=== PATIENT | female | born 1975 | race Caucasian/White ===

== ENCOUNTER → 2017-07-21 13:14 | Emergency (ER) | payer MEDICARE, BC ==
[~2017-07-21 13:14] MED LIST: HYDROmorphone INJ* 1 MG/ML CARPUJECT SYRINGE IV ONE; HYDROmorphone INJ* 1 MG/ML CARPUJECT SYRINGE IV SLOW PU ONE; Ketorolac INJ* 30 MG/ML 1 ML VIAL IV ONE; LORazepam INJ* 2 MG/ML 1 ML VIAL IV PUSH ONE; NS 0.9% 1000 ML* 1,000 ML IV ONE; Ondansetron INJ* 2 MG/ML VIAL IV ONE
[2017-07-21 14:55] LABS: Hematocrit 34 % (35-47); Hemoglobin 12.1 g/dl (12.0-16.0); Mean Corpuscular HGB Conc 35 g/dl (31-36); Mean Corpuscular Hemoglobin 34 pg (27-31); Mean Corpuscular Volume 97 fL (80-97); Mean Platelet Volume 6 um3 (7.4-10.4); Red Blood Count 3.55 10^6/ul (4.0-5.4); Red Cell Distribution Width 14 % (10.5-15); White Blood Count 1.9 10^3/ul (3.5-10.8)
[2017-07-21 14:56] LABS: Comments Flag Yes
[2017-07-21 14:57] LABS: Add Diff/Slide Review? Slide Review Added
--- NOTE | 2017-07-21 15:44 | RAD ---
Indication: Headache. Sinus pain. History of breast carcinoma. Comparison: April 28, 2017 bone scan. Technique: Noncontrast CT vertex of skull through foramen magnum. Report: The sulci, ventricles, and basal cisterns are normal for age. Hawkins matter white matter differentiation is preserved without evidence for edema. No intra or extra axial hemorrhage, mass, or fluid collection detected. Unremarkable visualized orbital contents. Unremarkable calvarium and skull base. Unremarkable scalp. The visualized paranasal sinuses and mastoid air spaces are clear. IMPRESSION: Negative unenhanced head CT.
--- NOTE | 2017-07-21 15:57 | RAD ---
Indication: Headache and sinus pain. History of breast carcinoma with bone metastasis. Comparison: CT brain of the same date and April 28, 2017 bone scan. Technique: Noncontrast CT paranasal sinuses with multiplanar reformation. Report: Artifact from dental amalgam. Clear paranasal sinuses and mastoid air spaces. Negative for paranasal sinus fluid levels. Clear infundibulum of the anterior ostiomeatal units. Clear nasal cavity. Patent choana and unremarkable nasopharyngeal mucosal space contours. No lytic or blastic osseous lesions evident. Unremarkable orbital contents. IMPRESSION: Negative unenhanced CT of the paranasal sinuses. No evidence for sinusitis or metastatic disease.
[2017-07-21 16:21] LABS: Urine Bilirubin Negative (Negative); Urine Glucose Negative (Negative); Urine Nitrite Negative (Negative)
--- NOTE | 2017-07-21 17:05 | ED ---
Kelley Alcantara Thomas, scribed for Imani Lawrence MD on 07/21/17 at 1435 . Headache - HPI Summary HPI Summary: The pt is a 41 y/o F presenting to the ED c/o a LE that began two days ago. The headache is located in her bilateral temples and radiates to her neck. The pain is rated 8/10. She describes this headache as the worst of her life. The pain is aggravated and alleviated by nothing. 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 Pt additionally c/o vomiting that coleman yesterday and continued today. She has vomited twice so far. She treated the vomiting with Zofran yesterday and today. Zofran did provide relief yesterday but no relief today. Pt denies fevers. She has Stage 4 breast cancer with metastases to her bones. She is on two chemotherapy treatments, one oral and one IV. Her oral treatment is three weeks on and one week off. She is currently in the third week, although she has not taken the medication for the last two days d/t her vomiting. Her IV treatment is once every four weeks. Her last IV treatment was three days ago. The patient also complains of nasal congestion and sinus tenderness that began three days ago, when she was diagnosed with a sinus infection and was started on Clindamycin. She says she may be slightly neutropenic. PSHx of a Port and a double mastectomy. SHx of occasional drinking and former smoking. She is accompanied by her . - History Of Current Complaint Chief Complaint: EDHeadache Stated Complaint: HEAD ACHE Time Seen by Provider: 07/21/17 13:34 Hx Obtained From: Patient, Family/Plastic Surgeon - is present Onset/Duration: Started days ago - onset two days ago, Still Present Initially Headache Was: "Worst Headache Ever" Currently Pain Is: Current Pain Scale(0-10)= - 8 Timing: Constant Location of Headache: Temporal - bilateral Radiates to: her neck Aggravating Factor: Nothing Allevating Factors: Nothing - OxyContin and Advil to no relief Associated Signs And Symptoms: Vomiting - yesterday and today, Other (Noted In Comments) - Nsal congestion, sinus tenderness; NEG: fever - Allergies/Home Medications Allergies/Adverse Reactions: Allergies Allergy/AdvReac Type Severity Reaction Status Date / Time Adhesive Tape Allergy Intermediate RAW SKIN Verified 04/28/17 07:29 Penicillins Allergy Mild Rash Verified 04/28/17 07:29 PMH/Surg Hx/FS Hx/Imm Hx Previously Healthy: No Endocrine/Hematology History: Reports: Hx Bone Marrow Disease Denies: Hx Diabetes Cardiovascular History: Denies: Hx Hypertension History: Denies: Hx Renal Disease Sensory History: Reports: Hx Contacts or Glasses Denies: Hx Hearing Aid Opthamlomology History: Reports: Hx Contacts or Glasses Psychiatric History: Reports: Hx Anxiety - ON MEDICATION FOR - Cancer History Cancer Type, Location and Year: Stage 4 Breast Cancer with metastases to her bones. Hx Chemotherapy: Yes - Surgical History Surgery Procedure, Year, and Place: ALL DONE IN [facility]. 10/2014- OVARIES REMOVED. 04/2012-BILATERAL MASTECTOMY,RECONSTRUCTIVE SURGERY, POWERPORT PORT PLACEMENT. MULTIPLE SURGERIES FOR BREAST RECONSTRUCTION. REMOVAL POWER PORT-. HERNIA REPAIR AT Hx Anesthesia Reactions: No Infectious Disease History: No Infectious Disease History: Denies: Traveled Outside the in Last 30 Days - Family History Known Family History: Positive: Other - Negative for breast cancer - Social History Lives: With Family Alcohol Use: Occasionally Substance Use Type: Reports: None Hx Tobacco Use: Yes Smoking Status (MU): Former Smoker Amount Used/How Often: 1/2 PPD X 10-15 YEARS Have You Smoked in the Last Year: No Review of Systems Negative: Fever Positive: Other - Nasal congestion, sinus tenderness Positive: Vomiting - yesterday and today, two episodes Positive: Headache - onset two days ago, bilateral temporal and radiates to neck All Other Systems Reviewed And Are Negative: Yes Physical Exam Triage Information Reviewed: Yes Vital Signs On Initial Exam: Initial Vitals Temp Pulse Resp BP Pulse Ox 98.1 F 95 18 160/106 99 07/21/17 13:16 07/21/17 13:16 07/21/17 13:16 07/21/17 13:16 07/21/17 13:16 Vital Signs Reviewed: Yes Appearance: Positive: Well-Appearing, Pain Distress - She is uncomfortable appearing but not toxic appearing Skin: Positive: Warm, Skin Color Reflects Adequate Perfusion, Dry Eyes: Positive: EOMI, OZZIE ENT: Positive: Pharynx normal, TMs normal Neck: Positive: Supple, Nontender Respiratory/Lung Sounds: Positive: Clear to Auscultation, Breath Sounds Present. Negative: Rales, Rhonchi, Wheezes Cardiovascular: Positive: RRR, Other - No gallop. Negative: Murmur, Rub Abdomen Description: Positive: Nontender, Soft, Other: - No guarding. Negative : Distended, Guarding Bowel Sounds: Positive: Present Musculoskeletal: Positive: Strength/ROM Intact. Negative: Edema Left, Edema Right Neurological: Positive: Sensory/Motor Intact, Alert, Oriented to Person Place, Time, CN Intact II-III Psychiatric: Positive: Affect/Mood Appropriate - [place] Coma Scale Coma Scale Total: 15 Diagnostics - Vital Signs Vital Signs Temp Pulse Resp BP Pulse Ox 07/21/17 13:16 98.1 F 95 18 160/106 99 - Laboratory Lab Results: Lab Results 07/21/17 07/21/17 07/21/17 Range/Units 14:41 14:41 15:35 WBC 1.9 L (3.5-10.8) 10^3/ul RBC 3.55 L (4.0-5.4) 10^6/ul Hgb 12.1 (12.0-16.0) g/dl Hct 34 L (35-47) % MCV 97 (80-97) fL MCH 34 H (27-31) pg MCHC 35 (31-36) g/dl RDW 14 (10.5-15) % Plt Count 96 L (150-450) 10^3/ul MPV 6 L (7.4-10.4) um3 Neut % (Auto) 59.7 (38-83) % Lymph % (Auto) 31.0 (25-47) % [place] % (Auto) 8.3 (1-9) % Eos % (Auto) 0.6 (0-6) % Baso % (Auto) 0.4 (0-2) % Absolute Neuts (auto) 1.1 L (1.5-7.7) 10^3/ul Absolute Lymphs (auto) 0.6 L (1.0-4.8) 10^3/ul Absolute Monos (auto) 0.2 (0-0.8) 10^3/ul Absolute Eos (auto) 0 (0-0.6) 10^3/ul Absolute Basos (auto) 0 (0-0.2) 10^3/ul Absolute Nucleated RBC 0.01 10^3/ul Nucleated RBC % 0.3 Lactic Acid 0.8 (0.5-2.0) mmol/L Urine Color Straw Urine Appearance Clear Urine pH 8.0 (5-9) Ur Specific [place] 1.010 (1.010-1.030) Urine Protein Negative (Negative) Urine Ketones Trace H (Negative) Urine Blood Negative (Negative) Urine Nitrate Negative (Negative) Urine Bilirubin Negative (Negative) Urine Urobilinogen Negative (Negative) Ur Leukocyte Esterase Negative (Negative) Urine Glucose Negative (Negative) Result Diagrams: 07/21/17 14:41 Lab Statement: Any lab studies that have been ordered have been reviewed, and results considered in the medical decision making process. - CT CT Brain CT Interpretation: No Acute Changes - Negative unenhanced head CT. ED physician has read this report and agrees. CT Interpretation Completed By: Radiologist CT Sinus CT Interpretation: No Acute Changes - Negative unenhanced CT of the paranasal sinuses. No evidence for sinusitis or metastatic disease. ED Physician has reviewed this report and agrees. CT Interpretation Completed By: Radiologist Re-Evaluation - Re-Evaluation First Eval Re-Evaluation Time: 15:30 Change: Unchanged Comment: She is requesting more pain medication Headache Course/Dx - Course Course Of Treatment: 41 yo female with metastatic breast ca, with mets to cervical spine with le for 2 days, refractive to her oxycodone, she had already been started on clinda by Dr. Vee for a presumed sinusitis after some sinus pressure on monday. CT brain, sinuses are neg here labs are unremarkable except for low wbc of 1.9 with an anc of 1.1. On exam pt does not have any rash or any signs of meningismus but she does notice musculoskeletal pain over para spinal muscles of her neck. Pt is also suprisingly well appearing. Case was discussed with Dr. Dior who felt as long as there was no meningismus pt was ok to go home. Of note pt does not have fever. Situation was discussed with pt and her mom and given this muscle pain in her neck (of note she is neurologically intact) plan is to try and ativan to see if it help with her nausea and relaxes her muscles. She knows she needs to return if her symptoms get worse or don't resolve - Diagnoses Provider Diagnoses: Headache - Physician Notifications Discussed Care Of Patient With: Zamzam Dior Time Discussed With Above Provider: 16:08 Instructed by Provider To: Other - I consulted regarding patient care. Discharge - Discharge Plan Condition: Stable Disposition: HOME Prescriptions: LORazepam TAB(*) [Ativan 1 MG TAB (*)] 1 mg PO Q8H PRN #9 tab MDD 3 PRN Reason: Spasms Patient Education Materials: Acute Headache (ED) Referrals: Reilly Vee MD [Primary Care Provider] - 3 Days The documentation as recorded by the Kelley sosa Thomas accurately reflects the service I personally performed and the decisions made by me, Imani Lawrence MD.
[2017-07-21 18:05] VITALS: BP 133/89
== END | disposition home or self-care (01) ==
LOC: ED 13:14
DX: R51 Headache (principal); R11.10 Vomiting, unspecified; R09.81 Nasal congestion; C79.51 Secondary malignant neoplasm of bone; C50.919 Malignant neoplasm of unspecified site of unspecified female breast; D75.9 Disease of blood and blood-forming organs, unspecified; Z90.13 Acquired absence of bilateral breasts and nipples; F41.9 Anxiety disorder, unspecified; Z88.0 Allergy status to penicillin; Z91.048 Other nonmedicinal substance allergy status; Z87.891 Personal history of nicotine dependence
CPT/HCPCS: 36415; 70450; 70486; 81003; 83605; 85025; 87040; 96361; 96374; 96375; 96376; 99283; J1170; J1642; J1885; J2060; J2405

== ENCOUNTER 2019-03-29 10:09 | Inpatient (IN) | payer MEDICARE, BC ==
[2019-03-29] MEDS ORDERED: Ondansetron INJ* 2 MG/ML VIAL IV PRN (12:10)
[2019-03-29] MEDS ORDERED: Acetaminophen TAB* 325 MG PO PRN (12:10)
[2019-03-29] MEDS ORDERED: HYDROmorphone INJ1* 1 MG/ML SYRINGE IV PRN (12:15)
[2019-03-29] MEDS ORDERED: Prochlorperazine TAB* 10 MG PO PRN (12:15)
[2019-03-29] MEDS ORDERED: Vancomycin per Pharmacy* NOTE FOLLOW UP PRN (12:36)
[2019-03-29] MEDS ORDERED: Vancomycin(*) 1,000 MG in NS 0.9% 250 ML* 250 ML IVPB ONE (12:45)
[2019-03-29] MEDS: Enoxaparin(*) 40 MG/0.4 ML SYR SUBCUT SCH (13:05)
[2019-03-29] MEDS: oxyCODONE TAB* 5 MG TAB PO PRN ×3 (13:27→21:52)
[2019-03-29 13:38] LABS: ABS Eosinophils 0.1 10^3/ul (0-0.6); ABS Lymphocytes 0.5 10^3/ul (1.0-4.8); ABS Monocytes 1.1 10^3/ul (0-0.8); ABS Neutrophils 3.9 10^3/ul (1.5-7.7); Eosinophil % 1.9 %; Hematocrit 27 % (35-47); Hemoglobin 8.9 g/dL (12.0-16.0); Lymphocyte % 8.7 %; Mean Corpuscular HGB Conc 33 g/dL (31-36); Mean Corpuscular Hemoglobin 33 pg (27-31); Mean Corpuscular Volume 101 fL (80-97); Mean Platelet Volume 7.8 fL (7.4-10.4); Nucleated Red Blood Cells % 0.1; Platelet Count 300 10^3/uL (150-450); Red Cell Distribution Width 18 % (10.5-15); White Blood Count 5.6 10^3/uL (3.5-10.8)
[2019-03-29 13:54] LABS: Albumin 3.5 g/dL (3.2-5.2); Albumin/Globulin Ratio 1.4 (1-3); BUN/Creatinine Ratio 11.4 (8-20); C Reactive Protein 74.09 mg/L (<8.01); EGFR African American 111.6 (>60); EGFR Non-African American 92.2 (>60); Globulin 2.5 g/dL (2-4); Potassium 3.8 mmol/L (3.5-5.0); Total Bilirubin 0.3 mg/dL (0.2-1.0)
[2019-03-29 14:46] LABS: Erythrocyte Sed Rate 85 mm/Hr (0-19)
[2019-03-29] MEDS: HYDROmorphone INJ1* 1 MG/ML SYRINGE IV PRN ×4 (15:04→22:01)
[2019-03-29] MEDS: Zolpidem TAB* 10 MG PO SCH (21:50)
[2019-03-29] MEDS: Calcium Carbonate CHEW TAB* 500 MG (TUMS) PO SCH (21:53)
[2019-03-29] MEDS: DULoxetine DR CAP* 30 MG CAP.DR PO SCH (21:54)
[2019-03-29] MEDS: clonazePAM TAB(*) 0.5 MG PO SCH (21:54)
[2019-03-29] MEDS: Vancomycin(*) 750 MG in NS 0.9% 250 ML* 250 ML IVPB SCH (21:59)
[2019-03-30] MEDS: HYDROmorphone INJ1* 1 MG/ML SYRINGE IV PRN ×7 (00:11→14:14)
[2019-03-30] MEDS: oxyCODONE TAB* 5 MG TAB PO PRN ×4 (02:08→20:39)
[2019-03-30] MEDS: Vancomycin(*) 750 MG in NS 0.9% 250 ML* 250 ML IVPB SCH ×3 (06:30→21:38)
[2019-03-30 06:41] LABS: ABS Eosinophils 0.1 10^3/ul (0-0.6); ABS Lymphocytes 0.5 10^3/ul (1.0-4.8); ABS Monocytes 0.9 10^3/ul (0-0.8); ABS Neutrophils 2.9 10^3/ul (1.5-7.7); Eosinophil % 2.6 %; Hematocrit 26 % (35-47); Hemoglobin 8.7 g/dL (12.0-16.0); Mean Corpuscular HGB Conc 33 g/dL (31-36); Mean Corpuscular Hemoglobin 33 pg (27-31); Mean Corpuscular Volume 100 fL (80-97); Mean Platelet Volume 7.6 fL (7.4-10.4); Nucleated Red Blood Cells % 0.1; Platelet Count 281 10^3/uL (150-450); Red Blood Count 2.61 10^6 /uL (3.70-4.87); Red Cell Distribution Width 18 % (10.5-15); White Blood Count 4.4 10^3/uL (3.5-10.8)
[2019-03-30 07:38] LABS: Calcium 8.8 mg/dL (8.6-10.3); Potassium 3.8 mmol/L (3.5-5.0)
[2019-03-30 07:40] LABS: C Reactive Protein 74.45 mg/L (<8.01); EGFR African American 117.4 (>60)
[2019-03-30] MEDS: clonazePAM TAB(*) 0.5 MG PO SCH ×2 (08:22→20:41)
[2019-03-30] MEDS: Calcium Carbonate CHEW TAB* 500 MG (TUMS) PO SCH ×2 (08:22→20:41)
[2019-03-30] MEDS: Enoxaparin(*) 40 MG/0.4 ML SYR SUBCUT SCH (13:16)
--- NOTE | 2019-03-30 15:27 | CONS ---
CONSULTATION NOTE: DATE OF CONSULT: 03/30/19 REQUESTING PROVIDER: Reilly Vee MD. REASON FOR CONSULTATION: Right lower extremity cellulitis. HISTORY OF PRESENT ILLNESS: Ms. Reyes is a very pleasant 43-year-old female with a history of metastatic breast cancer who has been on chemotherapy now for several years. She states that over the past 4 months, after chemotherapy, she has been getting intermittent right lower extremity erythema that typically resolves on its own without any intervention or antibiotics. However, approximately 2 weeks ago after chemotherapy she said that she began to have the right lower extremity erythema that seemed to improve afterwards and that became more purplish in color and then started to resolve. However, several days ago it started to return and become worse. She was seen by her oncologist Dr. Vee for the right lower extremity pain and swelling and CT scan of the pelvis as well as lower extremity was performed, which showed extensive inflammatory change and infiltration of the subcutaneous fat of the right lower extremity part of the gluteus and down to the right knee. However, there was no drainable collection or hematoma. She was admitted to the hospital for IV antibiotics and surgery was consulted given that there was concern that there was more swelling of her lower extremity. Of note, she also had a lower extremity duplex that did not show any DVTs. Today, the patient states that the pain still persists. She states that it is difficult to move her leg without using her hands to lift it up. She is able to ambulate slowly with a cane to the rest room. She states that the swelling and the pain feels fairly intense, but she is again able to move her extremity. She denies numbness or loss of sensation. PAST MEDICAL HISTORY: Breast cancer. PAST SURGICAL HISTORY: Bilateral salpingo-oophorectomy, double mastectomy, hernia repair at , TRAM flap breast reconstruction. MEDICATIONS: 1. Ambien. 2. Calcium. 3. CBD. 4. Cymbalta. 5. Denosumab subcutaneous q. 4 weeks. 6. Lasix p.r.n. 7. Gabapentin. 8. Klonopin. 9. K-Tab. 10. L-lysine. 11. Oxycodone p.r.n. 12. Pepcid p.r.n. 13. Protonix. 14. Temazepam p.r.n. 15. Zofran p.r.n. ALLERGIES: PENICILLIN. FAMILY HISTORY: A maternal cousin with breast cancer. Mother with bladder cancer. SOCIAL HISTORY: The patient is . She is a former smoker. REVIEW OF SYSTEMS: Negative except for right lower extremity pain and swelling. PHYSICAL EXAM: Vital Signs: Temperature 98.3, pulse is 102, respiratory rate is 16, O2 sat 97% on room air, blood pressure is 112/66. General: This is a young woman lying comfortably bed in no apparent distress. HEENT: Normo- cephalic and atraumatic. Cardiovascular: Regular rate and rhythm. Respiratory : Clear to auscultation bilaterally. Lower Extremities: Positive DP and PT pulses bilaterally. At her ankle, there is 5/5 strength with extension and dorsiflexion of her ankle bilaterally. She has normal active movement of her left lower extremity. She is able to lift up her right lower extremity with some effort on her own. No decreased sensation of the right lower extremity. Examination of her right lower extremity reveals very darkened erythema extending across her anterior leg onto her posterior gluteus and some swelling around her medial knee. The erythema is slightly tender to palpation. There are some swelling, but some compartments of her upper thigh are soft. DIAGNOSTIC STUDIES/LAB DATA: Venous Doppler study from 03/29/19 shows no right lower extremity deep vein thrombosis and her CT pelvis and lower extremity was reviewed and showed diffuse inflammatory changes of the right lower extremity and right gluteus. No evidence of abscess or hematoma. ASSESSMENT AND PLAN: Ms. Reyes is a 43-year-old female with a history of metastatic breast cancer, currently on chemotherapy, who presented with 2 weeks of right lower extremity cellulitis that has been worsening over the past several days. She was admitted to the hospital for IV antibiotics. CT scan showed extensive subcutaneous inflammatory changes of her right lower extremity , down to her knee, and up into her gluteus consistent with her physical exam findings. She also had a duplex that did not reveal DVT. Currently her cellulitis appears somewhat mild on exam. She does not have any fevers or elevated white blood cell count. I would recommend continuing to monitor the lower extremity. The area of erythema that appears most prominent was outlined with a marking pen. I have also recommended and spoken to her nurse by elevating her right lower extremity while she is lying in bed. 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 At that time, there is no evidence that this is potentially necrotizing soft tissue infection or that the patient has compartment syndrome given that she has no neurologic or vascular deficits and has soft compartments. Surgery will continue to follow. I spent approximately 30 minutes in the care and coordination of this patient, over half of which was face to face. [id number]/[facility] #: [id number] REYES
[2019-03-30] MEDS: HYDROmorphone INJ1* 1 MG/ML SYRINGE IV SLOW PU PRN ×4 (16:42→23:29)
[2019-03-30] MEDS ORDERED: Pantoprazole TAB * 40 MG TAB PO SCH (17:00)
[2019-03-30] MEDS: DULoxetine DR CAP* 30 MG CAP.DR PO SCH (20:40)
[2019-03-30] MEDS: Senna TAB PO SCH (20:40)
[2019-03-30] MEDS: Zolpidem TAB* 10 MG PO SCH (20:41)
[2019-03-30] MEDS: Pantoprazole TAB * 40 MG TAB PO SCH (20:41)
[2019-03-31] MEDS: HYDROmorphone INJ1* 1 MG/ML SYRINGE IV PRN (04:00)
[2019-03-31] MEDS: oxyCODONE TAB* 5 MG TAB PO PRN ×3 (04:28→21:08)
[2019-03-31] MEDS ORDERED: Vancomycin Trough Check NOTE FOLLOW UP ONE (05:30)
[2019-03-31 06:00] LABS: ABS Eosinophils 0.1 10^3/ul (0-0.6); ABS Lymphocytes 0.4 10^3/ul (1.0-4.8); ABS Monocytes 0.7 10^3/ul (0-0.8); ABS Neutrophils 2.2 10^3/ul (1.5-7.7); Eosinophil % 2.8 %; Hematocrit 23 % (35-47); Hemoglobin 7.7 g/dL (12.0-16.0); Lymphocyte % 10.6 %; Mean Corpuscular HGB Conc 34 g/dL (31-36); Mean Corpuscular Hemoglobin 34 pg (27-31); Mean Corpuscular Volume 101 fL (80-97); Mean Platelet Volume 7.4 fL (7.4-10.4); Nucleated Red Blood Cells % 0.1; Platelet Count 283 10^3/uL (150-450); Red Blood Count 2.28 10^6 /uL (3.70-4.87); Red Cell Distribution Width 18 % (10.5-15); White Blood Count 3.4 10^3/uL (3.5-10.8)
[2019-03-31 06:09] LABS: C Reactive Protein 60.92 mg/L (<8.01)
[2019-03-31] MEDS: HYDROmorphone INJ1* 1 MG/ML SYRINGE IV SLOW PU PRN ×6 (06:19→21:59)
[2019-03-31] MEDS: Vancomycin(*) 750 MG in NS 0.9% 250 ML* 250 ML IVPB SCH ×3 (06:42→22:06)
[2019-03-31] MEDS: Calcium Carbonate CHEW TAB* 500 MG (TUMS) PO SCH ×2 (08:19→21:07)
[2019-03-31] MEDS: clonazePAM TAB(*) 0.5 MG PO SCH ×2 (08:19→21:08)
[2019-03-31] MEDS: Docusate CAP* 100 MG PO PRN ×2 (10:34→21:07)
--- NOTE | 2019-03-31 11:36 | PN ---
Progress Note - Progress Note Date of Service: 03/31/19 Note: Surgery Progress Note S: Patient says she ambulated twice around the unit yesterday but the second time was very painful. Her RLE still feels swollen and painful. She also complains of left flank swelling. She says pain is about the same level today. She remains afebrile. O: Vital Signs - 24 hr 03/30/19 03/30/19 03/30/19 11:34 12:19 13:57 Temperature 98.3 F Pulse Rate 102 Respiratory 16 18 18 Rate Blood Pressure 112/66 (mmHg) O2 Sat by Pulse 97 Oximetry 03/30/19 03/30/19 03/30/19 14:14 15:25 16:04 Temperature 98.8 F Pulse Rate 109 Respiratory 20 18 20 Rate Blood Pressure 134/76 (mmHg) O2 Sat by Pulse 99 Oximetry 03/30/19 03/30/19 03/30/19 16:07 16:42 18:10 Temperature Pulse Rate Respiratory 20 18 20 Rate Blood Pressure (mmHg) O2 Sat by Pulse Oximetry 03/30/19 03/30/19 03/30/19 18:52 20:00 20:12 Temperature Pulse Rate Respiratory 18 18 18 Rate Blood Pressure (mmHg) O2 Sat by Pulse Oximetry 03/30/19 03/30/19 03/30/19 20:13 20:39 20:41 Temperature 98.5 F Pulse Rate 106 Respiratory 16 18 18 Rate Blood Pressure 131/83 (mmHg) O2 Sat by Pulse 96 Oximetry 03/30/19 03/30/19 03/30/19 21:26 23:15 23:29 Temperature 97.6 F Pulse Rate 97 Respiratory 17 16 18 Rate Blood Pressure 107/69 (mmHg) O2 Sat by Pulse 97 Oximetry 03/30/19 03/31/19 03/31/19 23:37 00:34 03:55 Temperature 98.8 F Pulse Rate 93 Respiratory 16 16 18 Rate Blood Pressure 91/61 (mmHg) O2 Sat by Pulse 96 Oximetry 03/31/19 03/31/19 03/31/19 04:00 04:20 04:28 Temperature Pulse Rate Respiratory 18 18 Rate Blood Pressure 122/72 (mmHg) O2 Sat by Pulse Oximetry 03/31/19 03/31/19 03/31/19 05:00 06:19 07:10 Temperature Pulse Rate Respiratory 16 18 15 Rate Blood Pressure (mmHg) O2 Sat by Pulse Oximetry 03/31/19 03/31/19 03/31/19 07:42 08:19 08:20 Temperature 97.8 F Pulse Rate 95 Respiratory 17 16 16 Rate Blood Pressure 98/60 (mmHg) O2 Sat by Pulse 93 Oximetry 03/31/19 10:32 Temperature Pulse Rate Respiratory 16 Rate Blood Pressure (mmHg) O2 Sat by Pulse Oximetry Laboratory Results - last 24 hr 03/31/19 03/31/19 05:30 05:30 WBC 3.4 L RBC 2.28 L Hgb 7.7 L Hct 23 L MCV 101 H MCH 34 H MCHC 34 RDW 18 H Plt Count 283 MPV 7.4 Neut % (Auto) 64.4 Lymph % (Auto) 10.6 [place] % (Auto) 21.6 Eos % (Auto) 2.8 Baso % (Auto) 0.6 Absolute Neuts (auto) 2.2 Absolute Lymphs (auto) 0.4 L Absolute Monos (auto) 0.7 Absolute Eos (auto) 0.1 Absolute Basos (auto) 0.0 Absolute Nucleated RBC 0.0 Nucleated RBC % 0.1 C-Reactive Protein 60.92 H Vancomycin Trough 17.0 Intake & Output 03/30/19 03/31/19 03/31/19 22:59 06:59 14:59 Intake Total 5149 680 8688 Output Total 1250 1999 Balance -250 -1275 1020 Intake: IVPB 275 300 ABX - VANCOMYCIN 275 300 Oral 1000 450 720 Output: Urine 1250 1999 Physical exam: Gen: young woman lying comfortably in bed, anxious about her pain RLE: +DP and PT pulses, +active flexion and extension at ankle, limited active range of motion at knee and hip due to pain; erythema not beyond outlined area, no bullae, warm to touch, +edema and swelling along anterior and medial thigh, tender to deep palpation along the knee and thigh A/P: 43 F with metastatic breast cancer and 2 weeks of RLE cellulitis that has worsened since last Mon, prompting admission for IV abx. - Patient remains afebrile, HR in 90s, with normal WBC, no leukocytosis, normal Na yesterday and downtrending CRP and CKs. Her physical exam is fairly unchanged today. I discussed with the patient and her mother that at this time she has evidence of cellulitis and that a necrotizing soft tissue infection is low on the differential, given her clinical picture. - I discussed patient with Dr. Vee. If concern that swelling and pain is due to compartment syndrome would consult orthopedics to measure compartment pressures. Also recommend ID consult regarding patient's recurrent cellulitis - Continue leg elevation, abx
[2019-03-31] MEDS: Ketorolac INJ* 30 MG/ML 1 ML VIAL IV PUSH PRN ×2 (13:13→19:22)
[2019-03-31] MEDS: Cefepime 2 GM in Dextrose(*) 2 GM/50 ML BAG IV SCH (13:13)
[2019-03-31] MEDS: Enoxaparin(*) 40 MG/0.4 ML SYR SUBCUT SCH (13:13)
[2019-03-31] MEDS: Zolpidem TAB* 10 MG PO SCH (21:02)
[2019-03-31] MEDS: Senna TAB PO SCH (21:07)
[2019-03-31] MEDS: Pantoprazole TAB * 40 MG TAB PO SCH (21:07)
[2019-03-31] MEDS: DULoxetine DR CAP* 30 MG CAP.DR PO SCH (21:08)
[2019-04-01] MEDS: Cefepime 2 GM in Dextrose(*) 2 GM/50 ML BAG IV SCH ×2 (00:13→11:33)
[2019-04-01] MEDS: HYDROmorphone INJ1* 1 MG/ML SYRINGE IV SLOW PU PRN ×8 (03:41→21:59)
[2019-04-01] MEDS: oxyCODONE TAB* 5 MG TAB PO PRN ×3 (03:46→19:09)
[2019-04-01 06:11] LABS: ABS Eosinophils 0.1 10^3/ul (0-0.6); ABS Lymphocytes 0.3 10^3/ul (1.0-4.8); ABS Monocytes 0.6 10^3/ul (0-0.8); ABS Neutrophils 2.6 10^3/ul (1.5-7.7); Eosinophil % 2.7 %; Hematocrit 24 % (35-47); Hemoglobin 7.8 g/dL (12.0-16.0); Mean Corpuscular HGB Conc 33 g/dL (31-36); Mean Corpuscular Hemoglobin 33 pg (27-31); Mean Corpuscular Volume 99 fL (80-97); Mean Platelet Volume 6.6 fL (7.4-10.4); Nucleated Red Blood Cells % 0.3; Platelet Count 276 10^3/uL (150-450); Red Blood Count 2.39 10^6 /uL (3.70-4.87); Red Cell Distribution Width 17 % (10.5-15); White Blood Count 3.6 10^3/uL (3.5-10.8)
[2019-04-01] MEDS: Vancomycin(*) 750 MG in NS 0.9% 250 ML* 250 ML IVPB SCH ×3 (06:13→22:03)
--- NOTE | 2019-04-01 08:40 | PN ---
Progress Note - Progress Note Date of Service: 04/01/19 Note: Surgery Progress Note S: Patient feels a little better this morning. She feels that her right knee is less swollen and she has a little less pain overall. She complains of swelling in her bilateral flank areas. She ambulated 3 times yesterday. She remains afebrile. No numbness or tingling O: Vital Signs - 24 hr 03/31/19 03/31/19 03/31/19 10:32 11:32 12:25 Temperature 97.6 F Pulse Rate 95 Respiratory 16 16 18 Rate Blood Pressure 99/64 (mmHg) O2 Sat by Pulse 94 Oximetry 03/31/19 03/31/19 03/31/19 14:36 16:00 16:25 Temperature 97.6 F Pulse Rate 104 Respiratory 16 20 16 Rate Blood Pressure 110/67 (mmHg) O2 Sat by Pulse 91 Oximetry 03/31/19 03/31/19 03/31/19 17:01 18:34 19:29 Temperature Pulse Rate Respiratory 14 14 18 Rate Blood Pressure (mmHg) O2 Sat by Pulse Oximetry 03/31/19 03/31/19 03/31/19 19:42 19:55 20:29 Temperature 98.5 F Pulse Rate 95 Respiratory 16 18 20 Rate Blood Pressure 97/60 (mmHg) O2 Sat by Pulse 94 Oximetry 03/31/19 03/31/19 03/31/19 21:08 21:59 23:00 Temperature Pulse Rate Respiratory 18 20 16 Rate Blood Pressure (mmHg) O2 Sat by Pulse Oximetry 04/01/19 04/01/19 04/01/19 00:12 01:55 03:20 Temperature 98.8 F Pulse Rate 98 Respiratory 16 14 16 Rate Blood Pressure 116/70 (mmHg) O2 Sat by Pulse 97 Oximetry 04/01/19 04/01/19 04/01/19 03:41 03:46 06:07 Temperature Pulse Rate Respiratory 20 18 20 Rate Blood Pressure (mmHg) O2 Sat by Pulse Oximetry 04/01/19 04/01/19 04/01/19 06:14 07:43 08:17 Temperature 99.1 F Pulse Rate 104 Respiratory 18 18 18 Rate Blood Pressure 117/66 (mmHg) O2 Sat by Pulse 91 Oximetry Intake & Output 03/31/19 04/01/19 04/01/19 22:59 06:59 14:59 Intake Total 426 650 Output Total 600 1200 Balance -174 -550 Intake: IV Fluids 30 NS (0.9%) 30 IVPB 286 ABX - VANCOMYCIN 286 Oral 110 650 Output: Urine 600 1200 Laboratory Results - last 24 hr 04/01/19 06:00 WBC 3.6 RBC 2.39 L Hgb 7.8 L Hct 24 L MCV 99 H MCH 33 H MCHC 33 RDW 17 H Plt Count 276 MPV 6.6 L Neut % (Auto) 72.2 Lymph % (Auto) 7.0 [place] % (Auto) 17.3 Eos % (Auto) 2.7 Baso % (Auto) 0.8 Absolute Neuts (auto) 2.6 Absolute Lymphs (auto) 0.3 L Absolute Monos (auto) 0.6 Absolute Eos (auto) 0.1 Absolute Basos (auto) 0.0 Absolute Nucleated RBC 0.0 Nucleated RBC % 0.3 Physical exam: RLE- erythema within previously marked lines along anterior and medial upper thigh, warm, +swelling, +DP/PT pulses, full active ROM of ankle. Limited ROM of hip/knee from pain. no decreased sensation. Decreased erythema and tenderness around posterior gluteus. No obvious flank swelling on right or left. Overall thigh and lower extremity compartments soft A/P: 43 F with metastatic breast cancer with RLE cellulitis - Pain and erythema have improved today since Monday, patient able to ambulate more and remains afebrile with no leukocytosis, no left shift. No clinical evidence at this moment of necrotizing soft tissue infection - Recommend IV abx, ID consult - Recommend ortho consult if concern about compartment syndrome develops - Surgery will sign off, please feel free to call back as needed.
[2019-04-01] MEDS: Calcium Carbonate CHEW TAB* 500 MG (TUMS) PO SCH ×2 (09:00→21:42)
[2019-04-01] MEDS: clonazePAM TAB(*) 0.5 MG PO SCH ×2 (09:00→21:43)
[2019-04-01] MEDS: Dexamethasone IV* 4 MG/ML 1 ML (4 MG) IV SLOW PU SCH ×2 (11:33→21:43)
--- NOTE | 2019-04-01 12:58 | CONS ---
CONSULTATION REPORT: DATE OF CONSULT: 04/01/19 REQUESTING PHYSICIAN: Dr. Vee. CONSULTING SERVICE: Infectious Disease. REASON FOR CONSULT: Right leg erythema. IMPRESSION: 1. Stage IV breast cancer with recent Gemzar chemotherapy and right thigh erythema, edema, tenderness, slight elevation in CK and CRP, improved over the weekend on antibiotics. Differential diagnosis includes infective cellulitis and myositis. There is no log roll or effusion, neither suggestive of septic joint. There is no crepitus or subcu air on the CT, so anaerobic gas gangrene seemed unlikely. Question of a Gemzar side effect, which has apparently been reported in the literature, was raised by Dr. Vee. 2. PENICILLIN allergy caused rash. RECOMMENDATIONS: We will continue broad-spectrum antibiotics, with vancomycin goal trough 10 to [address] Vee is going to start corticosteroids for the possibility of an immune-mediated process driven by chemotherapy. I will order an MRI to show there is no hip joint effusion as well as to look for muscle involvement. HISTORY OF PRESENT ILLNESS: This is a 43-year-old woman with metastatic breast cancer, admitted with right leg pain. Since she has been on Gemzar chemotherapy , she has noticed some right thigh redness and pain starting after each infusion and it resolves within 2 or 3 days. It seemed to be getting a little worse each cycle and then with the addition of corticosteroids at the time of her infusion, it seemed to delay the onset of symptoms. After last week's infusion, she had onset of severe right inner thigh redness, pain, swelling that spread up to her right hip. It did not radiate to the groin. A CT scan showed infiltration of subcu fat at the proximal right thigh along the right hip and lateral gluteal musculature with inflammation. No fluid collection. No hematoma. Sclerotic bone lesion in the spine, pelvis, and left femur. Compression of the left common iliac vein. She has been on broad spectrum antibiotics here. Her symptoms have eased off a little bit. As far as the pain , it seems to be receding back into the thigh. She did have severe pain with weightbearing, but now is able to be up and around bathroom with less pain, though she is on more narcotic pain medicine. She has not had fevers, chills, or sweats. Her appetite is at its baseline. Blood cultures here were negative. She has had no leukocytosis. Her CRP initially was 74 and 60 today. CK was 344 on admission, 265 on 03/30/19. PAST MEDICAL HISTORY: 1. Stage IV breast cancer, treated with double mastectomy, chemotherapy, now with bone metastasis. 2. Status post TRAM flap breast reconstruction. 3. Status post bilateral salpingo-oophorectomy. 4. Depression. 5. Anxiety. 6. Pain. MEDICATIONS: 1. Tylenol. 2. Calcium carbonate. 3. Cefepime 2 g IV 12 hours. 4. Clonazepam. 5. Docusate. 6. Duloxetine. 7. Enoxaparin/heparin flushed through the port. 8. Dilaudid injection as needed. 9. Ketorolac. 10. Oxycodone as needed. 11. Pantoprazole. 12. Reglan as needed. 13. Vancomycin 750 mg every 8 hours. 14. Ambien. FAMILY HISTORY: No recurrent infections. SOCIAL HISTORY: She lives in [facility]. She has no travel or sick contacts. REVIEW OF SYSTEMS: All negative except as noted above to 14-point review. PHYSICAL EXAM: Vital Signs: Temperature 37, heart rate 100, respiratory rate 18, blood pressure 109/69, oxygen saturation 94% on room air. In general, she is awake, not in distress. Neurologic: She is oriented x3. Follows all commands. Moves all extremities. She does have weakness with right hip flexion. HEENT: There is no conjunctival hemorrhage. Oropharynx without lesions. Neck: Neck is supple without mass. Heart: Regular rate and rhythm without murmurs, rubs, or gallops. Lungs: Clear to auscultation bilaterally. Abdomen: Soft, nontender, nondistended. There are bowel sounds present. Skin : There is no rash or splinter hemorrhage. Musculoskeletal: Right thigh: There is diffuse edema in the medial thigh that extends up over the pelvis and into the right buttock. There is no crepitus or fluctuance. There is tenderness in that distribution. There is no pain with log roll. There is no pain with passive range of motion of the right hip. She cannot flex the right hip. DIAGNOSTIC STUDIES/LAB DATA: White blood cell count 3.6, hemoglobin 10.8, platelets 276. Creatinine is 0.6. Please see impressions and recommendations outlined above, which I have discussed with Dr. Vee. Thank you for asking me to see Ms. Reyes in consultation. [id number]/[facility] #: [id number] REYES
[2019-04-01] MEDS: Enoxaparin(*) 40 MG/0.4 ML SYR SUBCUT SCH (13:47)
[2019-04-01] MEDS: Senna TAB PO SCH (21:36)
[2019-04-01] MEDS: DULoxetine DR CAP* 30 MG CAP.DR PO SCH (21:42)
[2019-04-01] MEDS: Pantoprazole TAB * 40 MG TAB PO SCH (21:43)
[2019-04-01] MEDS: Zolpidem TAB* 10 MG PO SCH (21:43)
[2019-04-01] MEDS: Docusate CAP* 100 MG PO PRN (21:43)
[2019-04-02] MEDS: Cefepime 2 GM in Dextrose(*) 2 GM/50 ML BAG IV SCH ×2 (00:54→12:28)
[2019-04-02] MEDS: oxyCODONE TAB* 5 MG TAB PO PRN ×5 (00:54→21:16)
[2019-04-02] MEDS: HYDROmorphone INJ1* 1 MG/ML SYRINGE IV SLOW PU PRN ×8 (00:55→18:42)
[2019-04-02] MEDS ORDERED: Vancomycin Trough Check NOTE FOLLOW UP ONE (05:30)
[2019-04-02 07:02] LABS: EGFR African American 141.4 (>60); EGFR Non-African American 116.9 (>60)
[2019-04-02 07:12] LABS: Vancomycin Trough 12.7 mcg/mL
[2019-04-02] MEDS: Dexamethasone IV* 4 MG/ML 1 ML (4 MG) IV SLOW PU SCH ×2 (08:10→21:19)
[2019-04-02] MEDS: Vancomycin(*) 750 MG in NS 0.9% 250 ML* 250 ML IVPB SCH ×2 (08:11→14:15)
[2019-04-02] MEDS: clonazePAM TAB(*) 0.5 MG PO SCH ×2 (08:16→22:36)
[2019-04-02] MEDS: Calcium Carbonate CHEW TAB* 500 MG (TUMS) PO SCH ×2 (08:16→21:18)
[2019-04-02] MEDS: Enoxaparin(*) 40 MG/0.4 ML SYR SUBCUT SCH (12:29)
[2019-04-02] MEDS: DULoxetine DR CAP* 30 MG CAP.DR PO SCH (21:17)
[2019-04-02] MEDS: Pantoprazole TAB * 40 MG TAB PO SCH (21:18)
[2019-04-02] MEDS: HYDROmorphone INJ1* 1 MG/ML SYRINGE IV PRN (21:25)
[2019-04-02] MEDS: Docusate CAP* 100 MG PO PRN (21:30)
[2019-04-02] MEDS: Senna TAB PO SCH (21:33)
[2019-04-02] MEDS: Zolpidem TAB* 10 MG PO SCH (22:37)
[2019-04-03] MEDS: Cefepime 2 GM in Dextrose(*) 2 GM/50 ML BAG IV SCH (00:07)
[2019-04-03] MEDS: HYDROmorphone INJ1* 1 MG/ML SYRINGE IV PRN ×4 (01:51→09:16)
[2019-04-03] MEDS: oxyCODONE TAB* 5 MG TAB PO PRN ×2 (05:20→09:34)
[2019-04-03 06:04] LABS: EGFR African American 128.4 (>60); EGFR Non-African American 106.1 (>60)
[2019-04-03 08:09] VITALS: BP 136/80
[2019-04-03] MEDS: Calcium Carbonate CHEW TAB* 500 MG (TUMS) PO SCH (09:07)
[2019-04-03] MEDS: clonazePAM TAB(*) 0.5 MG PO SCH (09:08)
[2019-04-03] MEDS: Dexamethasone IV* 4 MG/ML 1 ML (4 MG) IV SLOW PU SCH (09:09)
[2019-04-03] MEDS: Docusate CAP* 100 MG PO PRN (09:42)
[2019-04-03] MEDS: HYDROmorphone INJ1* 1 MG/ML SYRINGE IV SLOW PU PRN (11:18)
--- NOTE | 2019-04-04 10:27 | DS ---
DISCHARGE SUMMARY: DATE OF ADMISSION: 03/29/19 DATE OF DISCHARGE: 04/03/19 PRIMARY ONCOLOGIST/ATTENDING PHYSICIAN: Dr. Reilly Vee.* (DICTATED BY RAMAN MOTT) CONSULTING INFECTIOUS DISEASE SPECIALIST: Dr. Royce Christiansen. DISCHARGING PROVIDER: RAMAN Mott. PRIMARY DISCHARGE DIAGNOSES: 1. 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 2. Metastatic breast cancer. 3. 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 DISCHARGE MEDICATIONS: 1. Calcium carbonate 500 mg p.o. twice daily. 2. Clonazepam 0.5 mg p.o. twice daily. 3. Cymbalta 90 mg p.o. daily. 3. Lysine 500 mg p.o. daily. 4. Multivitamin 1 tablet p.o. daily. 5. Zofran 4 mg p.o. q.4 hours as needed for nausea and vomiting. 6. Oxycodone 3 to 4 mg p.o. q.3 hours as needed for pain. 7. Compazine 10 mg p.o. q.6 hours as needed for nausea and vomiting. 8. Ambien 10 mg p.o. at bedtime as needed. 9. Dexamethasone 4 mg p.o. twice daily. 10. MS Contin 120 mg p.o. at bedtime. HOSPITAL IMAGIN. CTA of the lower extremity shows no arterial occlusion. Soft tissues show significant inflammatory change consistent with possible cellulitis. No drainable fluid collection or obvious hematoma. Widespread sclerotic bony lesions involving the spine, pelvis, and left femur. 2. Venous Doppler study shows no DVT. 3. Lower extremity MRI findings consistent with cellulitis, myositis, and fascitis in both thighs, right greater than left, as well as small effusion within the right hip. HOSPITAL COURSE: This is a 43-year-old female with metastatic breast cancer, who is under the care of Dr. Vee and was recently treated with gemcitabine, who has been complaining of intermittent, but generally short-lived pain in her proximal right thigh, which is associated with focal edema. This started with switching to new regimen of gemcitabine. Initially thought to be perhaps some sort of focal rash associated with the gemcitabine and treated with increased steroids at the time of infusion, which seemed to help initially, but then she developed more significant and persistent pain. The patient's edema became quite pronounced and spread into the right lower back and flank region as well as into the buttock. She was evaluated by Dr. Reilly Vee in the oncology office with this complaint and had a CT scan completed earlier that morning for evaluation, which showed soft tissue inflammation consistent with a possible cellulitis. The patient was admitted to the hospital for empiric treatment for possible cellulitis. She was tender to palpation on exam with some mild erythema and edema in the right proximal thigh and flank. She had no leukocytosis or fever. Range of motion in the right hip was quite limited secondary to pain. The patient was empirically treated with vancomycin and cefepime was added 2 days into her hospitalization with little to no improvement in symptoms. She was subsequently seen by both surgery and infectious disease specialties, who suggested the possibility of myositis and suggested lower extremity MRI, which did indeed show inflammatory changes consistent with the myositis. Her CPK at the time of admission is 344. Following recognition of possible myositis, she was started on dexamethasone 4 mg p.o. twice daily and CPK improved to 85 at the time of discharge. There do seem to be a few case reports of gemcitabine inducing myositis and this seemed to be the most likely explanation for her symptoms. DISPOSITION AND FOLLOWUP PLAN: The patient is being discharged to home in stable condition. She will continue on dexamethasone at 4 mg p.o. twice daily at this time and we will taper once symptoms have improved further. Gemcitabine will be on hold until her symptoms resolve and we will readdress her treatment plan at that time. The patient will be seen in the oncology office for appropriate followup within the next week and the patient is encouraged to call with questions or recurrent symptoms that develop prior to that. RAMAN MOTT [id number]/[facility] #: [id number] [facility] CENTERKimberly
[2019-04-05] MEDS ORDERED: Vancomycin Trough Check NOTE FOLLOW UP ONE (05:30)
== END 2019-04-03 11:44 | disposition home or self-care (01) | DRG 603 ==
LOC: CHOA 10:09 → SSU 11:44
PROVIDERS: ADMIT Internal Medicine Hematology & Oncology; ATTEND Internal Medicine Hematology & Oncology
DX: L03.115 Cellulitis of right lower limb (principal); C79.51 Secondary malignant neoplasm of bone; M60.861 Other myositis, right lower leg; L03.116 Cellulitis of left lower limb; M60.862 Other myositis, left lower leg; T45.1X5A Adverse effect of antineoplastic and immunosuppressive drugs, initial encounter; C50.911 Malignant neoplasm of unspecified site of right female breast; G89.3 Neoplasm related pain (acute) (chronic); F41.9 Anxiety disorder, unspecified; F32.9 Major depressive disorder, single episode, unspecified; Y92.9 Unspecified place or not applicable; Z17.1 Estrogen receptor negative status [ER-]; Z88.0 Allergy status to penicillin; Z79.899 Other long term (current) drug therapy; Z92.3 Personal history of irradiation; Z90.13 Acquired absence of bilateral breasts and nipples; Z87.891 Personal history of nicotine dependence; Z80.3 Family history of malignant neoplasm of breast; Z80.52 Family history of malignant neoplasm of bladder
CPT/HCPCS: 36415; 80048; 80053; 80202; 82085; 82550; 82565; 84145; 84520; 85025; 85652; 86140; 87040; 96523; 99213; 99222; 99239; A9270-GY; G0463; J0692; J1100; J1170; J1642; J1650; J1885; J3370

== ENCOUNTER 2019-04-13 10:14 | Emergency (ER) | payer MEDICARE, BC ==
--- NOTE | 2019-04-13 10:38 | ED ---
Lower Extremity - HPI Summary HPI Summary: 43 year old F referred to [facility] by her oncologist accompanied by mother with a chief complaint of sudden onset bilateral knee pain described as "knives in my knees" since last night. The patient rates the pain 9/10 in severity. Symptoms aggravated by nothing. Symptoms alleviated by nothing. Patient reports right thigh pain. Patient denies bilateral knee swelling. She denies constipation. Patient has Stage 4 breast cancer with metastasis to bone. Patient was admitted last week for inflammation from an allergic reaction to chemotherapy. Patient was prescribed oxycodone after discharge from hospital and has been taking it as needed. Patient normally takes oxycodone on a daily basis as needed for pain with relief, but last night, she took it without relief. Patient also takes morphine. Patient took morphine this morning with no relief. Patient recently switched from antibiotics to steroids which has improved her pain. She still takes steroids 8 mg a day. - History of Current Complaint Chief Complaint: EDExtremityLower Stated Complaint: RIGHT LEG PAIN AND BOTH KNEES Time Seen by Provider: 04/13/19 10:27 Hx Obtained From: Patient Onset/Duration: Still Present Severity Currently: Severe Pain Intensity: 9 Pain Scale Used: 0-10 Numeric Timing: Constant Location: Is Discrete @ - bilateral knees Character Of Pain: Sharp Associated Signs And Symptoms: Positive: Other - right thigh pain; NEGATIVE: bilateral knee swelling, constipation Aggravating Factor(s): Nothing Alleviating Factor(s): Nothing - Allergies/Home Medications Allergies/Adverse Reactions: Allergies Allergy/AdvReac Type Severity Reaction Status Date / Time Adhesive Tape Allergy Intermediate RAW SKIN Verified 04/13/19 10:23 Penicillins Allergy Rash Verified 04/13/19 10:23 PMH/Surg Hx/FS Hx/Imm Hx Previously Healthy: No Endocrine/Hematology History: Reports: Hx Bone Marrow Disease Denies: Hx Diabetes Cardiovascular History: Denies: Hx Hypertension, Hx Pacemaker/ICD Respiratory History: Reports: Hx Pneumonia - walking pneumonia Denies: Hx Asthma History: Denies: Hx Renal Disease Musculoskeletal History: Reports: Hx Arthritis Sensory History: Reports: Hx Contacts or Glasses, Hx Hearing Aid Opthamlomology History: Reports: Hx Contacts or Glasses Psychiatric History: Reports: Hx Anxiety Denies: Hx Eating Disorder, Hx Depression, Hx Panic Disorder, Hx Substance Abuse - Cancer History Cancer Type, Location and Year: Stage 4 Breast Cancer with metastasis to bones. Hx Chemotherapy: Yes Hx Radiation Therapy: Yes - Surgical History Surgery Procedure, Year, and Place: ALL DONE IN [facility]. 10/2014- OVARIES REMOVED. 04/2012-BILATERAL MASTECTOMY,RECONSTRUCTIVE SURGERY, POWERPORT PORT PLACEMENT. MULTIPLE SURGERIES FOR BREAST RECONSTRUCTION - Lt BREAST IMPLANT - ( Rt SIDE FAILED) ; TRAM FLAP - Rt SIDE. REMOVAL POWER PORT-08/2013. HERNIA REPAIR AT . 07/2016 - NEW POWER PORT PLACED Hx Anesthesia Reactions: No Infectious Disease History: No Infectious Disease History: Denies: Traveled Outside the [place] in Last 30 Days - Family History Known Family History: Positive: Other - Negative for breast cancer - Social History Alcohol Use: Occasionally Alcohol Amount: monthly Hx Substance Use: No Substance Use Type: Reports: None Hx Tobacco Use: Yes Smoking Status (MU): Former Smoker Amount Used/How Often: 1/2 PPD X 10-15 YEARS Have You Smoked in the Last Year: No Review of Systems Gastrointestinal: Negative - constipation Musculoskeletal: Negative - bilateral knee swelling Positive: Other - bilateral knee pain, right thigh pain All Other Systems Reviewed And Are Negative: Yes Physical Exam - Summary Physical Exam Summary: Appearance: Well-appearing, Well-nourished, lying in bed comfortable Skin: Warm, dry, no obvious rash Eyes: sclera anicteric, no conjunctival pallor ENT: mucous membranes moist Neck: deferred Respiratory: No signs of respiratory distress Cardiovascular: Appears well perfused, pulses are nml Abdomen: deferred Musculoskeletal: Both knees appear normal without any swelling or effusion. The knees are are not warm. There is no focal point tenderness. Neurological: Awake and alert, mentation is normal, speech is fluent and appropriate Psychiatric: affect is normal, does not appear anxious or depressed Triage Information Reviewed: Yes Vital Signs On Initial Exam: Initial Vitals Temp Pulse Resp BP Pulse Ox 96.9 F 102 18 141/98 95 04/13/19 10:20 04/13/19 10:20 04/13/19 10:20 04/13/19 10:20 04/13/19 10:20 Vital Signs Reviewed: Yes Diagnostics - Vital Signs Vital Signs Temp Pulse Resp BP Pulse Ox 04/13/19 10:20 96.9 F 102 18 141/98 95 - Laboratory Lab Statement: Any lab studies that have been ordered have been reviewed, and results considered in the medical decision making process. - Radiology CXR Radiology Interpretation Completed By: Radiologist Summary of Radiographic Findings: NO ACUTE OSSEOUS INJURY BILATERALLY. IF SYMPTOMS PERSIST, RECOMMEND REPEAT IMAGING. ED physician has reviewed this report. Bilateral knee x-ray Radiology Interpretation Completed By: Radiologist Summary of Radiographic Findings: NO ACUTE OSSEOUS INJURY BILATERALLY. IF SYMPTOMS PERSIST, RECOMMEND REPEAT IMAGING. ED physician has reviewed this report. Re-Evaluation - Re-Evaluation First Eval Re-Evaluation Time: 12:28 Change: Improved Comment: Patient reports feeling better and her pain is improved Second Eval Re-Evaluation Time: 13:48 Change: Unchanged Comment: Upon discussing discharge plan with patient, patient is agreeable to discharge Lower Extremity Course/Dx - Course Course Of Treatment: 43 year old F referred to [facility] by her oncologist accompanied by mother with a chief complaint of sudden onset bilateral knee pain described as "knives in my knees" since last night. Patient has Stage 4 breast cancer with metastasis to bone. Patient normally takes oxycodone and morphine on a daily basis as needed for pain with relief, but last night, she took both without relief. Patient recently switched from antibiotics to steroids which has improved her pain. Bilateral knee x-ray shows, per radiologist, NO ACUTE OSSEOUS INJURY BILATERALLY. IF SYMPTOMS PERSIST, RECOMMEND REPEAT IMAGING. In ED course, patient was given morphine. Lidocaine patches were placed on patient's knees. Patient feels better and her pain is improved in the ED. Patient will be discharged home with instructions to follow up from Dr. Vee, her primary care provider. She was advised to increase the dose of her extended release morphine to 3 tabs in the evening and 2 in the morning for a reasonable short-term approach. The patient is agreeable with this plan. - Diagnoses Provider Diagnoses: Bilateral knee pain Discharge - Sign-Out/Discharge Documenting (check all that apply): Patient Departure - Discharge Patient Received Moderate/Deep Sedation with Procedure: No - Discharge Plan Condition: Good Disposition: HOME Patient Education Materials: Knee Pain (ED) Referrals: Reilly Vee MD [Primary Care Provider] - 2 Days Additional Instructions: Your x rays of the knees look ok, I don't see any obvious bony abnormalities that would make me worried about metastases to the bones there. Also your knees do not look inflamed on exam; there is not swelling or warmth. So the exact cause of the pain remains somewhat obscure. Nonetheless, it hurts so I think increasing the dose of your extended release morphine to 3 tabs in the evening and 2 in the morning seems a reasonable approach for the short term. - Billing Disposition and Condition Condition: GOOD Disposition: Home - Attestation Statements Document Initiated by Nancy: Yes Documenting Scribe: Juana Patel Provider For Whom Nancy is Documenting (Include Credential): Shane Campos MD Scribe Attestation: I, Juana Patel, scribed for Shane Campos MD on 04/13/19 at 2159. Scribe Documentation Reviewed: Yes Provider Attestation: The documentation as recorded by the Juana sosa accurately reflects the service I personally performed and the decisions made by me, Shane Campos MD Status of Scribmiri Document: Viewed
[2019-04-13] MEDS ORDERED: Lidocaine PATCH 5%* 1 PATCH TRANSDERM SCH (11:00)
[2019-04-13] MEDS: Morphine 10 MG/ML VIAL (1 ml) IV PRN ×2 (11:16→13:30)
[2019-04-13 14:18] VITALS: BP 153/102
[2019-04-13] MEDS ORDERED: Lidocaine Patch REMOVE* 1 NOTE MISC SCH (21:00)
== END 2019-04-13 14:19 | disposition home or self-care (01) ==
LOC: ED 10:14
DX: M25.562 Pain in left knee (principal); M25.561 Pain in right knee; M79.651 Pain in right thigh; C50.919 Malignant neoplasm of unspecified site of unspecified female breast; C79.51 Secondary malignant neoplasm of bone; Z88.0 Allergy status to penicillin; Z91.048 Other nonmedicinal substance allergy status; Z87.891 Personal history of nicotine dependence
CPT/HCPCS: 96374; 99282; A9270-GY; J1642; J2270